=== PATIENT | female | born 1990 | race Caucasian/White ===

== ENCOUNTER 2024-08-23 15:19 | Outpatient (RCR) | payer OTHER, SELFPAY | END 2024-11-06 13:59 | disposition home or self-care (01) | LOC: HO.WCC 15:19 | PROVIDERS: Visit Provider Surgery | DX: S21.222A Laceration with foreign body of left back wall of thorax without penetration into thoracic cavity, initial encounter (principal); T81.89XA Other complications of procedures, not elsewhere classified, initial encounter; H91.90 Unspecified hearing loss, unspecified ear | CPT/HCPCS: 11042 ==